=== PATIENT | female | born 1980 ===

== ENCOUNTER 2025-09-03 10:30 | Inpatient (IN) | payer OTHER ==
[~2025-09-03] VITALS: Ht 157.5 cm; Wt 76.7 kg
[2025-09-03 12:56] LABS: BASO % 0.8 % (0.1-1.2); EOS # 0.16 (0.04-0.54); EOS % 2.2 % (0.7-7.0); LYMPH # 1.97 (1.18-3.74); LYMPH % 27.7 % (19.3-53.1); MEAN PLATELET VOLUME 11.30 fl (9.4-12.4); MONO # 0.57 (0.24-0.82); MONO % 8.0 % (4.7-12.5); NEUT # 4.34 (1.56-6.13); NEUT % 61.0 % (34.0-71.1); RED CELL DISTRIBUTION WIDTH 14.5 % (11.6-14.4)
[2025-09-03 13:08] LABS: URINE APPEARANCE Clear; URINE BILIRRUBIN Negative (NEGATIVE); URINE BLOOD Trace; URINE COLOR Yellow; URINE GLUCOSE Negative (NEGATIVE); URINE KETONE Negative (NEGATIVE); URINE LEUKOCYTE Negative; URINE NITRATE Negative; URINE PROTEIN Negative (NEGATIVE); URINE UROBILINOGEN 0.2 E.U./dl
[2025-09-03 13:11] LABS: URINE BACTERIA 76.7 uL (0.0-1933); URINE EPITHELIAL CELLS 7.0 uL (0.0-38.8); URINE RBC 6.5 uL (0.0-20.8); URINE WBC 2.7 uL (0.0-23.2)
[2025-09-03 13:23] LABS: INR 0.97
[2025-09-03 13:28] LABS: URINE CAST 0.00 uL (0.0-1.40)
[2025-09-03 13:54] LABS: ALT/SGPT 19.0 U/L (12-78); AST/SGOT 14.0 U/L (15-37); BILIRUBIN TOTAL 0.44 mg/dL (0.3-1.2); BUN CREA RATIO 23.0 (7.0-25.0); CREATININE SERUM 0.71 mg/dL (0.55-1.02); GFR 88.24; GLOBULINA 3.8 G/DL (2.4-3.5); GLUCOSE FASTING 85.0 mg/dL (65-100); OSMOLALITY SERUM 282.0 MOSM/KG (275-295)
[2025-09-03 15:32] VITALS: BP 130/84
[2025-09-10] MEDS ORDERED: CEFOXITIN SODIUM 2,000 MG VIAL IV ONE (10:07)
[2025-09-10] MEDS ORDERED: POVIDONE-IODINE 118 ML BOTT TOP ONE (14:34)
[2025-09-10] MEDS ORDERED: SUGAMMADEX SODIUM 200 MG/2 ML VIAL IV ONE (16:54)
[2025-09-10] MEDS ORDERED: KETOROLAC TROMETHAMINE 60 MG VIAL IM STA (17:26)
[2025-09-10] MEDS ORDERED: RINGERS SOLUTION,LACTATED 1,000 ML IV SCH (17:30)
[2025-09-10] MEDS ORDERED: KETOROLAC TROMETHAMINE 60 MG VIAL IM ONE ×2 (18:25→18:31)
[2025-09-10 18:45] LABS: BASO % 0.3 % (0.1-1.2); EOS # 0.10 (0.04-0.54); EOS % 0.5 % (0.7-7.0); LYMPH # 1.88 (1.18-3.74); LYMPH % 9.9 % (19.3-53.1); MEAN PLATELET VOLUME 11.00 fl (9.4-12.4); MONO # 0.98 (0.24-0.82); MONO % 5.1 % (4.7-12.5); NEUT # 15.95 (1.56-6.13); NEUT % 83.8 % (34.0-71.1); RED CELL DISTRIBUTION WIDTH 14.3 % (11.6-14.4)
[2025-09-10] MEDS ORDERED: MORPHINE SULFATE 4 MG/ML CARTRIDGE IV PRN (19:15)
[2025-09-10 21:01] VITALS: BP 144/80
[2025-09-11 02:06] VITALS: BP 128/72
[2025-09-11 08:00] VITALS: BP 100/63
[2025-09-11] MEDS ORDERED: ACETAMINOPHEN WITH CODEINE 1 UDTAB TABLET PO PRN (09:00)
[2025-09-11 17:34] VITALS: BP 145/80
[2025-09-12 01:17] VITALS: BP 110/75
[2025-09-12 04:09] VITALS: BP 108/65
[2025-09-12 08:00] VITALS: BP 120/71
[2025-09-12] MEDS ORDERED: BISACODYL 10 MG/SUPP.RECT SUPP.RECT RECTAL STA (12:00)
[2025-09-12 16:00] VITALS: BP 131/80
[2025-09-13 00:42] VITALS: BP 97/68
[2025-09-13 04:00] VITALS: BP 102/68
[2025-09-13 09:52] VITALS: BP 129/87
== END 2025-09-13 17:19 | disposition home or self-care (01) | DRG 743 ==
LOC: SURH 09-10 07:00 → O/R 09-10 09:00 → OB/GYN 09-10 09:00 → SURH 09-10 10:30 → OB/GYN 09-10 17:53
PROVIDERS: ADMIT Obstetrics & Gynecology; ATTEND Obstetrics & Gynecology
PROC: 0UT70ZZ Resection of Bilateral Fallopian Tubes, Open Approach (ICD-10-PCS; 2025-09-10)
PROC: 0UT90ZZ Resection of Uterus, Open Approach (ICD-10-PCS; principal; 2025-09-10 07:00)
DX: D25.1 Intramural leiomyoma of uterus (principal); D25.2 Subserosal leiomyoma of uterus; N84.0 Polyp of corpus uteri